=== PATIENT | female | born 1985 | race American Indian/Alaskan Native ===

== ENCOUNTER 2019-10-31 09:59 | Emergency (ER) | payer OTHER ==
[2019-10-31 11:38] VITALS: BP 119/76
[2019-10-31] MEDS ORDERED: ACETAMINOPHEN 325 MG/10.15 ML ORAL LIQD UNIT DOSE PO ONE ×2 (11:38)
[2019-10-31] MEDS ORDERED: ACETAMINOPHEN 325 MG/10.15 ML ORAL LIQD UNIT DOSE ONE (11:39)
--- NOTE | 2019-10-31 11:53 | Emergency Department Report ---
ED ENT HPI - General Chief complaint: Sore Throat Stated complaint: SORE THROAT Time Seen by Provider: 10/31/19 11:35 Source: patient Mode of arrival: Ambulatory Limitations: No Limitations - History of Present Illness Initial comments: 33 y/o female comes in for sore throat time 1 day with worsening pain with swallowing. Also has lower back pain time this morning. Has not taken anything for pain. No pain with urination. 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 MD complaint: sore throat Location: throat Severity scale (0 -10): 9 Quality: stabbing Improves with: none Worsens with: none Associated Symptoms: fever, sore throat, other (back pain) - Related Data Home Medications Medication Instructions Recorded Confirmed Last Taken No.25/Iron/FA #6/Dha 1 tab PO DAILY 05/29/14 09/17/14 09/16/14 [Prena1 Softgel] Previous Rx's Medication Instructions Recorded Last Taken Type Ibuprofen [Motrin 800 MG tab] 800 mg PO PRN PRN #30 tablet 01/13/16 Unknown Rx traMADoL [Ultram 50 MG tab] 50 mg PO Q6HR PRN #20 tablet 01/13/16 Unknown Rx Amoxicillin [Amoxicillin TAB] 875 mg PO BID 10 Days #20 tablet 10/31/19 Unknown Rx Ibuprofen [Motrin 600 MG tab] 600 mg PO Q8H PRN 7 Days #21 tablet 10/31/19 Unknown Rx Allergies Allergy/AdvReac Type Severity Reaction Status Date / Time No Known Allergies Allergy Verified 09/15/14 09:22 ED Dental HPI - General Chief complaint: Sore Throat Stated complaint: SORE THROAT Time Seen by Provider: 10/31/19 11:35 Source: patient Mode of arrival: Ambulatory Limitations: No Limitations - History of Present Illness Initial comments: 33 y/o female comes in for sore throat, fever and lower back pain since yesterday. Onset/Timin -: days(s) Severity: severe Quality: sharp Consistency: constant Worsens with: swallowing Dental Associated Symptons: Yes: Sore Throat - Related Data Home Medications Medication Instructions Recorded Confirmed Last Taken No.25/Iron/FA #6/Dha 1 tab PO DAILY 05/29/14 09/17/14 09/16/14 [Prena1 Softgel] Previous Rx's Medication Instructions Recorded Last Taken Type Ibuprofen [Motrin 800 MG tab] 800 mg PO PRN PRN #30 tablet 01/13/16 Unknown Rx traMADoL [Ultram 50 MG tab] 50 mg PO Q6HR PRN #20 tablet 01/13/16 Unknown Rx Amoxicillin [Amoxicillin TAB] 875 mg PO BID 10 Days #20 tablet 10/31/19 Unknown Rx Ibuprofen [Motrin 600 MG tab] 600 mg PO Q8H PRN 7 Days #21 tablet 10/31/19 Unknown Rx Allergies Allergy/AdvReac Type Severity Reaction Status Date / Time No Known Allergies Allergy Verified 09/15/14 09:22 ED Review of Systems ROS: Stated complaint: SORE THROAT Other details as noted in HPI Comment: All other systems reviewed and negative ED Past Medical Hx - Past Medical History Hx Hypertension: No Hx Congestive Heart Failure: No Hx Diabetes: No Hx Deep Vein Thrombosis: No Hx Renal Disease: No Hx Sickle Cell Disease: No Hx Seizures: No Hx Asthma: No Hx COPD: No Hx HIV: No - Surgical History Past Surgical History?: No - Social History Smoking Status: Never Smoker Substance Use Type: None - Medications Home Medications: Home Medications Medication Instructions Recorded Confirmed Last Taken Type No.25/Iron/FA #6/Dha 1 tab PO DAILY 05/29/14 09/17/14 09/16/14 History [Prena1 Softgel] Ibuprofen [Motrin 800 MG tab] 800 mg PO PRN PRN #30 tablet 01/13/16 Unknown Rx traMADoL [Ultram 50 MG tab] 50 mg PO Q6HR PRN #20 tablet 01/13/16 Unknown Rx Amoxicillin [Amoxicillin TAB] 875 mg PO BID 10 Days #20 tablet 10/31/19 Unknown Rx Ibuprofen [Motrin 600 MG tab] 600 mg PO Q8H PRN 7 Days #21 tablet 10/31/19 Unknown Rx ED Physical Exam - General Limitations: No Limitations General appearance: alert, in no apparent distress - Head Head exam: Present: atraumatic, normocephalic - Eye Eye exam: Present: normal appearance - Expanded ENT Exam Expanded Throat exam: Positive: tonsillar erythema, tonsillomegaly, tonsillar exudate - Neck Neck exam: Present: tenderness, full ROM, lymphadenopathy - Respiratory Respiratory exam: Present: normal lung sounds bilaterally. Absent: respiratory distress - Cardiovascular Cardiovascular Exam: Present: regular rate, normal rhythm. Absent: systolic murmur, diastolic murmur, rubs, gallop - Back Exam Back exam: Present: full ROM, muscle spasm, paraspinal tenderness. Absent: tenderness, vertebral tenderness - Neurological Exam Neurological exam: Present: alert, oriented X3, normal gait - Psychiatric Psychiatric exam: Present: normal affect, normal mood - Skin Skin exam: Present: warm, dry, intact, normal color. Absent: rash ED Course Vital Signs 10/31/19 11:34 Temperature 102.4 F H Pulse Rate 90 Respiratory 18 Rate Blood Pressure 119/76 O2 Sat by Pulse 99 Oximetry ED Medical Decision Making - Lab Data Laboratory Tests 10/31/19 10/31/19 12:18 Unknown Urine Color Yellow Urine Turbidity Clear Urine pH 6.0 Ur Specific [place] 1.019 Urine Protein <15 mg/dl Urine Glucose (UA) Neg Urine Ketones Neg Urine Blood Neg Urine Nitrite Neg Urine Bilirubin Neg Urine Urobilinogen < 2.0 Ur Leukocyte Esterase Neg Urine WBC (Auto) 3.0 Urine RBC (Auto) 1.0 U Epithel Cells (Auto) 1.0 Urine Mucus Few Urine HCG, Qual Negative - Medical Decision Making 33 y/o female comes in for sore throat time 1 day with worsening pain with swallowing. Also has lower back pain time this morning. Has not taken anything for pain. No pain with urination. 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 Ibuprofen for pain management newly placed on amoxicillin 875 mg twice a day for 10 days. I would like for you to follow back up with your primary care provider if her symptoms persist or gets worse Critical care attestation.: If time is entered above; I have spent that time in minutes in the direct care of this critically ill patient, excluding procedure time. ED Disposition Clinical Impression: Pharyngitis, acute, Lower back pain Disposition: TO HOME OR SELFCARE Is pt being admited?: No Does the pt Need Aspirin: No Condition: Stable Instructions: Strep Throat (ED), Low Back Strain (ED) Additional Instructions: Urinalysis is negative for any acute infection, test negative, will treat you for strep pharyngitis and acute lower back strain. Ibuprofen for pain management newly placed on amoxicillin 875 mg twice a day for 10 days. I would like for you to follow back up with your primary care provider if her symptoms persist or gets worse Prescriptions: Amoxicillin [Amoxicillin TAB] 875 mg PO BID 10 Days #20 tablet Ibuprofen [Motrin 600 MG tab] 600 mg PO Q8H PRN 7 Days #21 tablet PRN Reason: Pain Forms: Work/School Release Form(ED)
[2019-10-31 12:48] LABS: HCG Qualitative,Urine Negative (Negative)
[2019-10-31 13:44] LABS: Bilirubin,Urine NEG (Negative); Blood,Urine NEG (Negative); Color,Urine Yellow (Yellow); Mucus,Urine FEW /HPF; Protein,Urine <15 mg/dL mg/dL (Negative); Urobilinogen,Urine < 2.0 mg/dL (<2.0)
== END 2019-10-31 14:22 | disposition home or self-care (01) ==
LOC: ED 09:59
DX: J02.9 Acute pharyngitis, unspecified (principal); M54.5 Low back pain
CPT/HCPCS: 81001; 81025; 99283

== ENCOUNTER 2021-05-24 09:52 | Outpatient (CLI) | payer OTHER ==
[2021-05-24 10:37] VITALS: BP 112/71
== END 2021-05-24 11:58 | disposition home or self-care (01) ==
LOC: TRG 09:52 → APU 09:54 → TRG 11:58
PROVIDERS: ATTEND Obstetrics & Gynecology
DX: Z34.93 Encounter for supervision of normal pregnancy, unspecified, third trimester (principal); Z3A.38 38 weeks gestation of pregnancy
CPT/HCPCS: 59025

== ENCOUNTER 2021-06-03 10:30 | Inpatient (IN) | payer OTHER ==
--- NOTE | 2021-06-03 10:57 | History and Physical Report ---
History of Present Illness Date of examination: 06/03/21 Chief complaint: contractions and back pain; direct admit from office History of present illness: EDC Calculations LMP: 06/05/2021 EDC Confirmation: 06/05/2021 Gestational Age: 8 4/7 weeks Past History : 5 Term Births: 3 Premature Births: 0 Living Children: 3 Para: 3 Mult. Births: 0 Prev : 0 Prev. attempt? none Aborta: 1 Elect. Ab: 0 Spont. Ab: 1 Ectopics: 0 # 1 Delivery date: 07/2009 Weeks Gestation: term Infant Sex: Female weight: 6-10 # 2 Delivery date: 04/14/2013 Weeks Gestation: 38 5/7 Delivery type: Vaginal Hours of labor: 8 Anesthesia type: epidural Delivery location: [facility] Infant Sex: female weight: 2828 Comments: none # 3 Delivery date: 09/17/2014 Weeks Gestation: 39 Delivery type: Vaginal Anesthesia type: epidural Delivery location: [facility] Sex: female weight: 6.31 Risk Factors: Smoked Tobacco Use: Never smoker Smokeless Tobacco Use: Never Passive smoke exposure: no Drug use: no HIV high-risk behavior: no Alcohol use: no Exercise: no Seatbelt use: 100 % Past Medical History: Reviewed history from 02/25/2013 and no changes required: Negative Past Medical History Past Surgical History: Reviewed history from 02/25/2013 and no changes required: Negative Past Surgical History Past Medical History 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 Past Surgical History Abnormal PAP: negative EMILIA Exposure: negative Infertility: negative Uterine Anomaly: negative Uterine Surgery (not C/S): negative Other Gynecologic Problems: negative Social Hx: Patient is single Infection History Hx of STD: none HIV Risk Eval: no Hepatitis B Risk Eval: low risk Varicella/Chicken Pox Status: Immunized Genetic History Congenital Heart Defect: Mom: no Dad: no Kodi Disease: Mom: no Dad: no Thalassemia Mom: no Dad: no Neural Tube Defect Mom: no Dad: no Down's Syndrome Mom: no Dad: no Jrery-Sachs Mom: no Dad: no Sickle Cell Disease/Trait Mom: no Dad: no Hemophilia Mom: no Dad: no Muscular Dystrophy Mom: no Dad: no Cystic Fibrosis Mom: no Dad: no [place] Chorea Mom: no Dad: no Mental Retardation Mom: no Dad: no Fragile X Mom: no Dad: no Other Genetic/Chromosomal Disorder Mom: no Dad: no Child w/other defect Mom: no Dad: no Enviromental Exposures Xray Exposure: no Medication, drug, or alcohol use since LMP: no Chemical/Other Exposure: no Exposure to Cat Liter: no Hx of Parvovirus (Fifth Disease): no Occupational Exposure to Children: none Active Medications (reviewed today): PLUS 27-1 MG ORAL TABLET ( VIT-FE FUMARATE-FA) 1 po daily Current Allergies (reviewed today): No known allergies Past History Past Medical History: other (See HPI) Past Surgical History: other (See HPI) ASSISTANT STORE MANAGER TRAINEE History: other (See HPI) Family/Genetic History: other (See HPI) Social history: other (See HPI ) - Obstetrical History Expected Date of Delivery: 06/05/21 Actual Gestation: 39 Week(s) 5 Day(s) : 5 Para: 3 Hx # Term Pregnancies: 3 Number of Pregnancies: 0 Spontaneous Abortions: 1 Induced : 0 Number of Living Children: 3 Medications and Allergies Allergies Allergy/AdvReac Type Severity Reaction Status Date / Time No Known Allergies Allergy Verified 09/15/14 09:22 Home Medications Medication Instructions Recorded Confirmed Last Taken Type No.25/Iron/FA #6/Dha 1 tab PO DAILY 05/29/14 09/17/14 09/16/14 History [Prena1 Softgel] Ibuprofen [Motrin 800 MG tab] 800 mg PO PRN PRN #30 tablet 01/13/16 Unknown Rx traMADoL [Ultram 50 MG tab] 50 mg PO Q6HR PRN #20 tablet 01/13/16 Unknown Rx Amoxicillin [Amoxicillin TAB] 875 mg PO BID 10 Days #20 tablet 10/31/19 Unknown Rx Ibuprofen [Motrin 600 MG tab] 600 mg PO Q8H PRN 7 Days #21 tablet 10/31/19 Unknown Rx Active Meds: Active Medications Acetaminophen (Acetaminophen 325 Mg Tab) 650 mg PO Q4H PRN PRN Reason: Pain, Mild (1-3) Butorphanol Tartrate (Butorphanol 2 Mg/1 Ml Inj) 1 mg IV Q2H PRN PRN Reason: Pain, Moderate(4-6) LABOR PAIN Butorphanol Tartrate (Butorphanol 2 Mg/1 Ml Inj) 2 mg IV Q2H PRN PRN Reason: Pain , Severe (7-10) Carboprost Tromethamine (Carboprost Tromethamine 250 Mcg/1 Ml Inj) 250 mcg IM ONCE PRN PRN Reason: Uterine Bleeding Ephedrine Sulfate (Ephedrine Sulfate 50 Mg/1 Ml Inj) 10 mg IV Q2M PRN PRN Reason: Hypotension Fentanyl (Fentanyl 100 Mcg/2 Ml Inj) 100 mcg IV Q2H PRN PRN Reason: Pain,Severe (7-10) LABOR PAIN Oxytocin/Sodium Chloride (Pitocin/Ns 30 Unit/500ml) 30 units in 500 mls @ 2 mls/hr IV TITR GUSTAVO; Protocol Lactated Ringer's (Lactated Ringers) 1,000 mls @ 125 mls/hr IV DIRECT GUSTAVO Oxytocin/Sodium Chloride (Pitocin/Ns 30 Unit/500ml) 30 units in 500 mls @ 40 mls/hr IV TITR GUSTAVO; Protocol Lidocaine (Lidocaine (2%) 20 Mg/1 Ml Vial 20 Ml Mdv) 20 ml INFILTRATI ONCE ONE Stop: 06/03/21 10:41 Loperamide HCl (Loperamide 2 Mg Cap) 2 mg PO ONCE PRN PRN Reason: give with Hemabate Methylergonovine Maleate (Methylergonovine Maleate 0.2 Mg/Ml Vial) 0.2 mg IM ONCE PRN PRN Reason: Uterine Bleeding Mineral Oil (Mineral Oil 30 Ml Oral Liqd) 30 ml PO QHS PRN PRN Reason: Constipation Misoprostol (Misoprostol 200 Mcg Tab) 800 mcg OH ONCE PRN PRN Reason: Uterine Bleeding Ondansetron HCl (Ondansetron 4 Mg/2 Ml Inj) 4 mg IV Q8H PRN PRN Reason: Nausea And Vomiting Oxytocin (Oxytocin 10 Unit/1 Ml Inj) 10 unit IM ONCE PRN PRN Reason: Uterine Bleeding Terbutaline Sulfate (Terbutaline 1 Mg/1 Ml Inj) 0.25 mg SUB-Q ONCE PRN PRN Reason: Hyperstimulation/Hypertonicity Review of Systems All systems: negative - Physical Exam Breasts: Positive: normal Cardiovascular: Regular rate Lungs: Positive: Normal air movement Abdomen: Positive: normal appearance, soft Genitourinary (Female): Positive: normal external genitalia Vulva: both: normal Vagina: Positive: normal moisture Uterus: Positive: normal size Extremities: Positive: normal - Obstetrical FHR: auscultation normal, category 1 Uterine Contraction Monitor Mode: External Cervical Dilatation: 5 Cervical Effacement Percentage: 60 station: -2 Uterine Contraction Frequency (min): 2 Uterine Contraction Pattern: Regular Uterine Tone Measurement Phase: Contraction Uterine Contraction Intensity: Moderate Results All other labs normal. Assessment and Plan Pt sent from office as direct admit to labor, admission orders in EMR, epidural PRN, anticipate . GBS -. - Patient Problems (1) 39 weeks gestation of Current Visit: No Status: Acute (2) Active labor at term Current Visit: No Status: Acute
[2021-06-03] MEDS ORDERED: OXYTOCIN 10 UNIT/1 ML INJ IM PRN (11:00)
[2021-06-03] MEDS ORDERED: LIDOCAINE (2%) 20 MG/1 ML VIAL 20 ML MDV INFILTRATI SCH (11:00)
[2021-06-03] MEDS ORDERED: ONDANSETRON 4 MG/2 ML INJ IV PRN ×3 (11:00→22:16)
[2021-06-03] MEDS ORDERED: TERBUTALINE 1 MG/1 ML INJ SUB-Q PRN (11:00)
[2021-06-03] MEDS ORDERED: ePHEDrine SULFATE 50 MG/1 ML INJ IV PRN ×2 (11:00→16:25)
[2021-06-03] MEDS ORDERED: BUTORPHANOL 2 MG/1 ML INJ IV PRN ×2 (11:00)
[2021-06-03] MEDS ORDERED: CARBOPROST TROMETHAMINE 250 MCG/1 ML INJ IM PRN (11:00)
[2021-06-03] MEDS ORDERED: LACTATED RINGERS 1,000 ML IV SCH (11:00)
[2021-06-03] MEDS ORDERED: LOPERAMIDE 2 MG CAP PO PRN (11:00)
[2021-06-03] MEDS ORDERED: miSOPROStol 200 MCG TAB PR PRN (11:00)
[2021-06-03] MEDS ORDERED: ACETAMINOPHEN 325 MG TAB PO PRN (11:00)
[2021-06-03] MEDS ORDERED: fentaNYL 100 MCG/2 ML INJ IV PRN (11:00)
[2021-06-03] MEDS ORDERED: OXYTOCIN DRIP 30 UNITS/500 ML BAG IV SCH ×2 (11:00)
[2021-06-03] MEDS ORDERED: METHYLERGONOVINE MALEATE 0.2 MG/ML VIAL IM PRN (11:00)
[2021-06-03] MEDS ORDERED: MINERAL OIL 30 ML ORAL LIQD PO PRN (11:00)
--- NOTE | 2021-06-03 12:39 | Event Note ---
Date: 06/03/21 Pt sitting in bed, pt tolerated contractions well, discussed risk/benefits of AROM and pt voiced desire for AROM. Clear fluid noted, IV fluid bolus in process for epidural.
[2021-06-03 12:44] LABS: Hemoglobin 10.7 gm/dl (10.1-14.3); Mean Corpuscular HGB Conc 33 % (30-34); Mean Corpuscular Volume 86 fl (79-97); Platelet Count 194 K/mm3 (140-440); Red Blood Count 3.71 M/mm3 (3.65-5.03); Red Cell Distribution Width 15.2 % (13.2-15.2)
[2021-06-03] MEDS ORDERED: NALOXONE 2 MG/2 ML INJ IV PRN (16:25)
[2021-06-03] MEDS ORDERED: diphenhydrAMINE 50 MG/ML VIAL IV PRN (16:25)
[2021-06-03] MEDS ORDERED: NalbUPHINE 10 MG/1 ML INJ IV PRN (16:25)
--- NOTE | 2021-06-03 16:26 | Progress Note ---
Assessment and Plan Pt states contractions are becoming more intense and she is feeling pressure. SVE performed , pt requesting epidural, bolusing for epi. carlton. Selina AKINS - Patient Problems (1) 39 weeks gestation of Current Visit: No Status: Acute (2) Active labor at term Current Visit: No Status: Acute Subjective - Subjective Date of service: 06/03/21 Principal diagnosis: IUP @ 39.5 Interval history: EDC Calculations LMP: 06/05/2021 EDC Confirmation: 06/05/2021 Gestational Age: 8 4/7 weeks Past History : 5 Term Births: 3 Premature Births: 0 Living Children: 3 Para: 3 Mult. Births: 0 Prev : 0 Prev. attempt? none Aborta: 1 Elect. Ab: 0 Spont. Ab: 1 Ectopics: 0 # 1 Delivery date: 07/2009 Weeks Gestation: term Sex: Female weight: 6-10 # 2 Delivery date: 04/14/2013 Weeks Gestation: 38 5/7 Delivery type: Vaginal Hours of labor: 8 Anesthesia type: epidural Delivery location: Infant Sex: female weight: 2828 Comments: none # 3 Delivery date: 09/17/2014 Weeks Gestation: 39 Delivery type: Vaginal Anesthesia type: epidural Delivery location: Infant Sex: female weight: 6.31 Risk Factors: Smoked Tobacco Use: Never smoker Smokeless Tobacco Use: Never Passive smoke exposure: no Drug use: no HIV high-risk behavior: no Alcohol use: no Exercise: no Seatbelt use: 100 % Past Medical History: Reviewed history from 02/25/2013 and no changes required: Negative Past Medical History Past Surgical History: Reviewed history from 02/25/2013 and no changes required: Negative Past Surgical History Past Medical History 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 Past Surgical History Abnormal PAP: negative EMILIA Exposure: negative Infertility: negative Uterine Anomaly: negative Uterine Surgery (not C/S): negative Other Gynecologic Problems: negative Social Hx: Patient is single Infection History Hx of STD: none HIV Risk Eval: no Hepatitis B Risk Eval: low risk Varicella/Chicken Pox Status: Immunized Genetic History Congenital Heart Defect: Mom: no Dad: no Kodi Disease: Mom: no Dad: no Thalassemia Mom: no Dad: no Neural Tube Defect Mom: no Dad: no Down's Syndrome Mom: no Dad: no Jerry-Sachs Mom: no Dad: no Sickle Cell Disease/Trait Mom: no Dad: no Hemophilia Mom: no Dad: no Muscular Dystrophy Mom: no Dad: no Cystic Fibrosis Mom: no Dad: no [place] Chorea Mom: no Dad: no Mental Retardation Mom: no Dad: no Fragile X Mom: no Dad: no Other Genetic/Chromosomal Disorder Mom: no Dad: no Child w/other defect Mom: no Dad: no Enviromental Exposures Xray Exposure: no Medication, drug, or alcohol use since LMP: no Chemical/Other Exposure: no Exposure to Cat Liter: no Hx of Parvovirus (Fifth Disease): no Occupational Exposure to Children: none Active Medications (reviewed today): PLUS 27-1 MG ORAL TABLET ( VIT-FE FUMARATE-FA) 1 po daily Current Allergies (reviewed today): No known allergies Patient reports: movement normal, contractions (Pt requesting epidural) Objective - Vital Signs Vital Signs: Vital Signs - 12hr 06/03/21 06/03/21 06/03/21 13:45 13:50 13:55 Pulse Rate 66 69 70 Blood Pressure O2 Sat by Pulse 100 100 100 Oximetry 06/03/21 06/03/21 06/03/21 14:00 14:05 14:10 Pulse Rate 67 68 69 Blood Pressure O2 Sat by Pulse 100 100 100 Oximetry 06/03/21 06/03/21 06/03/21 14:15 14:20 14:25 Pulse Rate 73 71 73 Blood Pressure O2 Sat by Pulse 100 100 99 Oximetry 06/03/21 06/03/21 06/03/21 14:30 14:35 14:40 Pulse Rate 87 72 70 Blood Pressure 105/59 O2 Sat by Pulse 99 100 100 Oximetry 06/03/21 06/03/21 06/03/21 14:45 14:50 14:55 Pulse Rate 70 79 83 Blood Pressure O2 Sat by Pulse 100 99 100 Oximetry 06/03/21 06/03/21 06/03/21 15:00 15:04 15:05 Pulse Rate 70 68 73 Blood Pressure 110/63 O2 Sat by Pulse 100 99 Oximetry 06/03/21 06/03/21 06/03/21 15:10 15:15 15:20 Pulse Rate 76 75 79 Blood Pressure O2 Sat by Pulse 100 99 100 Oximetry 06/03/21 06/03/21 06/03/21 15:25 15:30 15:34 Pulse Rate 73 74 66 Blood Pressure 112/61 O2 Sat by Pulse 100 100 Oximetry 06/03/21 06/03/21 06/03/21 15:35 15:40 15:45 Pulse Rate 81 71 71 Blood Pressure O2 Sat by Pulse 99 100 100 Oximetry 06/03/21 06/03/21 06/03/21 15:50 15:55 16:00 Pulse Rate 75 87 75 Blood Pressure O2 Sat by Pulse 99 99 100 Oximetry 06/03/21 06/03/21 06/03/21 16:04 16:05 16:10 Pulse Rate 75 71 72 Blood Pressure 108/59 O2 Sat by Pulse 100 100 Oximetry - Exam Lungs: Normal air movement Abdomen: Present: normal appearance, soft Vulva: both: normal Uterus: Present: normal FHR: auscultation normal, category 1 Uterine Contraction Monitor Mode: External Cervical Dilatation: 7 Cervical Effacement Percentage: 100 station: -1 Uterine Contraction Frequency (min): 2-3 Uterine Tone Measurement Phase: Contraction Uterine Contraction Intensity: Strong/Firm Extremities: normal - Labs Labs: Laboratory Results - last 24 hr 06/03/21 06/03/21 06/03/21 11:30 11:30 11:30 WBC 6.4 RBC 3.71 Hgb 10.7 Hct 32.0 MCV 86 MCH 29 MCHC 33 RDW 15.2 Plt Count 194 Syphilis IgG Antibody Nonreactive Blood Type A POSITIVE Antibody Screen Negative
[2021-06-03] MEDS ORDERED: fentaNYL-BUPIV 2 MCG/ML-0.125% 200 MCG/100 ML BAG EPIDURAL SCH (17:00)
[2021-06-03] MEDS ORDERED: LACTATED RINGERS 250 ML IV SOLN IV ONE (17:00)
--- NOTE | 2021-06-03 17:13 | Procedure Note ---
OB Delivery Note - Delivery Date of Delivery: 06/03/21 Sql Manager: ISAAK CARDONA ([facility]ina Re[facility]) Estimated blood loss: 300cc - Vaginal Delivery presentation: vertex Delivery position: OA Intrapartum events: none Delivery induction: none Delivery augmentation: rupture of membranes, pitocin Delivery monitor: external FHT, external uterine Route of delivery: Delivery placenta: spontaneous Delivery cord: nuchal cord, 3 umbilical vessels Episiotomy: none Delivery laceration: none Anesthesia: epidural (Pt sitting up for epidural and began pushing, epidural placed and loading dose given) Delivery comments: Female Infant birthed over intact perineum and placed to maternal abd. Nuchal cord x1, delivered through in somersault maneuver. Cord clamped and cut after cessation of pulsation. Placenta birthed spontaneously and intact, 3 vessel cord noted. Fundus firm and lochia light, EBL 300. Counts correct. Mother and baby L stable. "" 7#8, 9/9 APGARS. - Infant A at 1 minute: 9 at 5 minutes: 9 Infant Gender: Female (Perera, 7#8)
--- NOTE | 2021-06-03 17:16 | Anesthesia Consultation ---
Anesthesia Consult and Med Hx Date of service: 06/03/21 - Airway Anesthetic Teeth Evaluation: Good ROM Head & Neck: Adequate Mental/Hyoid Distance: Adequate Mallampati Class: Class III Intubation Access Assessment: Possibly Difficult - Pulmonary Exam CTA: Yes - Cardiac Exam Cardiac Exam: RRR - Pre-Operative Health Status ASA Pre-Surgery Classification: ASA2 Proposed Anesthetic Plan: Epidural - Pulmonary Hx Smoking: No Hx Asthma: No COPD: No Hx Pneumonia: No Hx Sleep Apnea: No - Cardiovascular System Hx Hypertension: No Hx Heart Attack/AMI: No Hx Angina: No - Central Nervous System Hx Seizures: No Hx Psychiatric Problems: No - Gastrointestinal Hx Gastroesophageal Reflux Disease: No - Endocrine Hx Renal Disease: No Hx End Stage Renal Disease: No Hx Liver Disease: No Hx Insulin Dependent Diabetes: No Hx Non-Insulin Dependent Diabetes: No Hx Hypothyroidism: No Hx Hyperthyroidism: No - Hematic Hx Anemia: No Hx Sickle Cell Disease: No - Other Systems Hx Alcohol Use: No Hx Obesity: Yes
--- NOTE | 2021-06-03 17:17 | Progress Note ---
Labor Epidural - Labor Epidural Start Time: 16:35 Stop Time: 16:55 Performed by:: TIFFANY JANE ([facility]) Procedure: Patient is requesting epidural for labor and pain. H&P, labs were reviewed. Patient IDed, H&P reviewed, all questions and concerns were answered, and consent was signed. Timeout was performed at bedside. Patient in sitting position. Sterile prep and drape was performed. 3ml of 1% lidocaine skin wheal at L[3]- L [4]. 18-gauge hustead epidural needle was advanced without success. 3ml of 1% lidocaine skin wheal at L[2]- L [3]. 18-gauge hustead epidural needle was advanced to loss of resistance with air technique 9cm. Negative CSF negative blood. Epidural catheter advanced to [15] centimeters. [negative] Aspiration [negative] test dose. Sterile dressing applied. Patient tolerated procedure.
[2021-06-03] MEDS ORDERED: PROMETHAZINE 25 MG RECT SUPP PR PRN (22:16)
[2021-06-03] MEDS ORDERED: PROMETHAZINE 25 MG TAB PO PRN (22:16)
[2021-06-03] MEDS ORDERED: WITCH HAZEL/ GLYCERIN PAD TP PRN (22:16)
[2021-06-03] MEDS ORDERED: diphenhydrAMINE 25 MG CAP PO PRN (22:16)
[2021-06-03] MEDS ORDERED: BENZOCAINE/MENTHOL 20/0.5% TOP SPRAY 56 GM TP PRN (22:16)
[2021-06-03] MEDS ORDERED: LANOLIN/ZINC/DIMETHICONE (LANSINOH) 7 GM TP PRN (22:16)
[2021-06-03] MEDS ORDERED: MAGNESIUM HYDROXIDE (MOM) ORAL LIQD UDC PO PRN (22:16)
[2021-06-03] MEDS: DOCUSATE SODIUM 100 MG CAP PO SCH (23:25)
[2021-06-03] MEDS: FERROUS SULFATE 325 MG TAB PO SCH (23:25)
[2021-06-03] MEDS: IBUPROFEN 800 MG TAB PO SCH (23:26)
[2021-06-04] MEDS: IBUPROFEN 800 MG TAB PO SCH ×3 (05:07→14:43)
[2021-06-04] MEDS ORDERED: TETANUS,DIPH,PERTUSS(ACELL) VACCINE 0.5 ML SYRINGE IM ONE (06:00)
[2021-06-04 06:11] LABS: Hematocrit 30.8 % (30.3-42.9); Hemoglobin 10.3 gm/dl (10.1-14.3)
[2021-06-04] MEDS: FERROUS SULFATE 325 MG TAB PO SCH (10:00)
[2021-06-04] MEDS ORDERED: PRENATAL VIT27-FE FUMARATE-FOLIC ACID VIT TAB PO SCH (10:00)
[2021-06-04] MEDS: DOCUSATE SODIUM 100 MG CAP PO SCH (10:00)
--- NOTE | 2021-06-04 11:41 | Discharge Summary ---
Providers - Providers Date of Admission: 06/03/21 10:57 Date of discharge: 06/04/21 Attending physician: RITA ROWELL 06/03/21 22:16 Consult to Freight Receiver [CONS] Routine Reason For Exam: assistance with , SNS Primary care physician: RITA ROWELL Hospitalization Reason for admission: active labor Delivery: Episiotomy: none Laceration: none Other procedures: none complications: none Discharge diagnosis: IUP at term delivered baby: female Hospital course: S: Pt doing well. Ambulating, voiding, and passing flatus. O: VSS. H/H 10.3/30.8. Fundus firm, minimal bleeding noted. A: 35 y.o. s/p . Now , in good condition and can be discharged home. P: Discharge home with instructions. Pt to schedule a visit in the office in 4-6 weeks. Condition at discharge: Good Disposition: 01 HOME / SELF CARE / HOMELESS Plan - Provider Discharge Summary Activity: routine, no sex for 6 weeks, no heavy lifting 4 weeks, no strenuous exercise Diet: routine Instructions: routine Additional instructions: [] Smoking cessation referral if applicable(refer to patient education folder for contact #) [] Refer to [facility]'s [facility] Booklet Call your doctor immediately for: * Fever > 100.5 * Heavy vaginal bleeding ( >1 pad per hour) * Severe persistent headache * Shortness of breath * Reddened, hot, painful area to leg or breast * Drainage or odor from incision. * Keep incision clean and dry at all times and follow doctor's instructions regarding bathing/showering Congratulations on your baby girl! Please schedule your check (after the of your baby) in our office in 4-6 weeks. Should you have any questions or concerns after discharge, please do not hesitate to call the office at [phone]. - Follow up plan Follow up: RITA ROWELL MD [Primary Care Provider] - 7 Days
--- NOTE | 2021-06-04 12:05 | Post Anesthesia Evaluation ---
- Post Anesthesia Evaluation Patient Participated: Yes Airway Patent: Yes Stable Respiratory Function: Yes Nausea/Vomiting: No Temp > 96.8F: Yes Pain Manageable: Yes Adequeate Hydration: Yes Anesthesia Complications: No Block Receding Appropriately: Yes
[2021-06-04 19:21] VITALS: BP 102/62
== END 2021-06-04 20:55 | disposition home or self-care (01) | DRG 807 ==
LOC: TRG 10:30 → APU 10:32 → TRG 10:55 → LD 10:57 → OB 20:38
PROVIDERS: ADMIT Obstetrics & Gynecology; ATTEND Obstetrics & Gynecology
PROC: 10E0XZZ Delivery of Products of Conception, External Approach (ICD-10-PCS; principal; 2021-06-03)
PROC: 3E0R3BZ Introduction of Anesthetic Agent into Spinal Canal, Percutaneous Approach (ICD-10-PCS; 2021-06-03)
PROC: 00HU33Z Insertion of Infusion Device into Spinal Canal, Percutaneous Approach (ICD-10-PCS; 2021-06-03)
DX: O69.81X0 Labor and delivery complicated by cord around neck, without compression, not applicable or unspecified (principal); Z37.0 Single live birth; Z3A.39 39 weeks gestation of pregnancy; Z20.822 Contact with and (suspected) exposure to COVID-19
CPT/HCPCS: 36415; 85014; 85018; 85027; 86592; 86850; 86900; 86901; 96360; G0378; J2590; J7120; U0003